=== PATIENT | female | born 1995 | race Caucasian/White ===

== ENCOUNTER 2019-04-22 20:47 | Emergency (ER) | payer BC ==
[~2019-04-22] VITALS: Ht 160 cm; Wt 54.4 kg
[2019-04-22] MEDS ORDERED: CITA20TA9 PO (21:08)
[2019-04-22] MEDS ORDERED: PROP10TA PO (21:08)
[2019-04-22] MEDS ORDERED: DEXT20TA2 PO (21:08)
[2019-04-22 21:32] LABS: BASO # 0.1 x10^3/uL (0.0-0.2); BASO % 1 % (0-3); EOS % 0 % (0-3); HEMATOCRIT 36.9 % (36.0-47.0); HEMOGLOBIN 12.4 g/dL (12.0-15.5); LYMPH # 2.4 x10^3/uL (1.0-4.8); LYMPH % 26 % (24-48); MEAN CORPUSCULAR HEMOGLOBIN 28 pg (25-35); MEAN CORPUSCULAR HGB CONC 34 g/dL (31-37); MEAN CORPUSCULAR VOLUME 84 fL (79-100); MONO # 0.4 x10^3/uL (0.0-1.1); MONO % 4 % (0-9); NEUT # 6.6 x10^3uL (1.8-7.7); NEUT % 70 % (31-73); PLATELET COUNT 321 x10^3/uL (140-400); RED BLOOD COUNT 4.42 x10^6/uL (3.50-5.40); RED CELL DISTRIBUTION WIDTH 17.5 % (11.5-14.5); WHITE BLOOD COUNT 9.4 x10^3/uL (4.0-11.0)
[2019-04-22 21:42] LABS: BILIRUBIN,URINE NEGATIVE (NEG); CLARITY,URINE CLOUDY; COLOR,URINE YELLOW; NITRITE,URINE NEGATIVE (NEG); PH,URINE 6.5; PROTEIN,URINE NEGATIVE (NEG-TRACE)
--- NOTE | 2019-04-22 21:43 | PHYS DOC ---
Past Medical History Past Medical History: Alcoholism, Anxiety, GERD, Other Additional Past Medical Histor: ADHD, CDIFF Past Surgical History: Other Additional Past Surgical Histo: wisdom teeth extraction, knee surgery, upper GI, fecal transplant Alcohol Use: Heavy Additional Information: drinks 1 bottle wine, and 2 large glasses of liquor daily Adult General Chief Complaint Chief Complaint: WITHDRAWL HPI HPI 23-year-old female presents to ER for concern she is detoxing from alcohol. Patient states she has had a bottle of wine and 2 large glasses of some type of hard liquor with her last drink around 1400 today. Pt reports she has felt anxious throughout the day and during initial exam is hyperventilating. She reports she has had some chest heaviness and felt short of air with her rapid breathing. Patient denies any recent illness, travel, or self-harm. Patient r eports she hasn't had much water or food intake today. 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 Her mother is at bedside during discussion w/pt's approval. Patient reports she had similar episode last fall and was in an inpatient tx in September for alcohol binge drinking when her stress related to school became overwhelming. LMP 3 weeks ago. Patient denies daily smoking. She reports she has occasionally used marijuana denies any recent illicit drugs. Pt denies any suicidal ideations. Reports she does have history of anxiety. Review of Systems Review of Systems Constitutional: Denies fever or chills [] Eyes: Denies change in visual acuity, redness, or eye pain [] HENT: Denies nasal congestion or sore throat [] Respiratory: Denies cough. Reports SOA w/rapid breathing Cardiovascular: Reports chest heaviness GI: Denies abdominal pain, bloody stools or diarrhea. Reports N/V w/1 episode vomiting today : Denies dysuria or hematuria [] Musculoskeletal: Denies back pain or joint pain [] Integument: Denies rash or skin lesions [] Neurologic: Denies headache, focal weakness or sensory changes [] Endocrine: Denies polyuria or polydipsia [] Psych: Reports anxiety/stress- denies SI All other systems were reviewed and found to be within normal limits, except as documented in this note. Current Medications Current Medications Current Medications Medications (Trade) Dose Ordered Sig/[place] Start Time Stop Time Status Last Admin Dose Admin Lorazepam (Ativan Inj) 0.5 mg 1X ONCE 04/22/19 22:00 04/22/19 22:01 DC 04/22/19 22:45 0.5 MG Magnesium Oxide (Magnesium Oxide) 400 mg STK-MED ONCE 04/22/19 22:55 04/22/19 22:56 DC Nitrofurantoin Macrocrystals (Macrobid) 100 mg 1X ONCE 04/23/19 00:30 04/23/19 00:31 DC 04/23/19 00:10 100 MG Sodium Chloride 1,000 ml @ 1,000 mls/hr 1X ONCE 04/22/19 22:30 04/22/19 23:29 DC 04/22/19 22:46 1,000 MLS/HR Allergies Allergies Allergies Coded Allergies Type Severity Reaction Last Updated Verified Sulfa (Sulfonamide Antibiotics) Allergy Intermediate rash 04/22/19 Yes amoxicillin Allergy Intermediate rash 04/22/19 Yes sulfamethoxazole Allergy Intermediate rash 04/22/19 Yes trimethoprim Allergy Intermediate rash 04/22/19 Yes clindamycin Adverse Reaction Severe cdiff 04/22/19 Yes Physical Exam Physical Exam Constitutional: Well developed, well nourished, mild distress- anxious/hyperventilating, non-toxic appearance. [] HENT: Normocephalic, atraumatic, bilateral external ears normal, oropharynx moist, no oral exudates, nose normal. [] Eyes: PERRLA, EOMI, conjunctiva normal, no discharge. [] Neck: Normal range of motion, no tenderness, supple, no stridor. [] Cardiovascular:Heart rate regular rhythm, no murmur [] Lungs & Thorax: Bilateral breath sounds clear to auscultation- resp. equal/nonlabored after emotional Abdomen: Bowel sounds normal, soft, no tenderness, no masses, no pulsatile masses. [] Skin: Warm, dry, no erythema, no rash. [] Back: No tenderness, no CVA tenderness. [] Extremities: No tenderness, no cyanosis, no clubbing, ROM intact, no edema. [] Neurologic: Alert and oriented X 3, normal motor function, normal sensory function, no focal deficits noted. [] Psychologic: Affect normal, judgement normal, mood normal. [] Current Patient Data Vital Signs Vital Signs Date Time Temp Pulse Resp B/P (MAP) Pulse Ox O2 Delivery O2 Flow Rate FiO2 04/22/19 23:30 70 16 121/76 (91) 100 Room Air 04/22/19 20:59 97.7 97.7 Lab Values Laboratory Tests Test 04/22/19 21:10 04/22/19 21:25 White Blood Count 9.4 x10^3/uL (4.0-11.0) Red Blood Count 4.42 x10^6/uL (3.50-5.40) Hemoglobin 12.4 g/dL (12.0-15.5) Hematocrit 36.9 % (36.0-47.0) Mean Corpuscular Volume 84 fL (79-100) Mean Corpuscular Hemoglobin 28 pg (25-35) Mean Corpuscular Hemoglobin Concent 34 g/dL (31-37) Red Cell Distribution Width 17.5 % (11.5-14.5) H Platelet Count 321 x10^3/uL (140-400) Neutrophils (%) (Auto) 70 % (31-73) Lymphocytes (%) (Auto) 26 % (24-48) Monocytes (%) (Auto) 4 % (0-9) Eosinophils (%) (Auto) 0 % (0-3) Basophils (%) (Auto) 1 % (0-3) Neutrophils # (Auto) 6.6 x10^3uL (1.8-7.7) Lymphocytes # (Auto) 2.4 x10^3/uL (1.0-4.8) Monocytes # (Auto) 0.4 x10^3/uL (0.0-1.1) Eosinophils # (Auto) 0.0 x10^3/uL (0.0-0.7) Basophils # (Auto) 0.1 x10^3/uL (0.0-0.2) Maternal Serum HCG Beta Subunit < 1 mIU/mL (0-5) Sodium Level 135 mmol/L (136-145) L Potassium Level 3.9 mmol/L (3.5-5.1) Chloride Level 95 mmol/L (98-107) L Carbon Dioxide Level 24 mmol/L (21-32) Anion Gap 16 (6-14) H Blood Urea Nitrogen 9 mg/dL (7-20) Creatinine 0.7 mg/dL (0.6-1.0) Estimated GFR (Cockcroft-Gault) 103.7 BUN/Creatinine Ratio 13 (6-20) Glucose Level 102 mg/dL (70-99) H Calcium Level 9.4 mg/dL (8.5-10.1) Magnesium Level 1.6 mg/dL (1.8-2.4) L Total Bilirubin 0.7 mg/dL (0.2-1.0) Aspartate Amino Transferase (AST) 25 U/L (15-37) Alanine Aminotransferase (ALT) 26 U/L (14-59) Alkaline Phosphatase 71 U/L (46-116) Troponin I Quantitative < 0.017 ng/mL (0.000-0.055) Total Protein 7.2 g/dL (6.4-8.2) Albumin 4.0 g/dL (3.4-5.0) Albumin/Globulin Ratio 1.3 (1.0-1.7) Ethyl Alcohol Level 91 mg/dL (0-10) H Urine Collection Type Unknown Urine Color Yellow Urine Clarity Cloudy Urine pH 6.5 Urine Specific [place] 1.020 Urine Protein Negative mg/dL (NEG-TRACE) Urine Glucose (UA) Negative mg/dL (NEG) Urine Ketones (Stick) >=80 mg/dL (NEG) Urine Blood Negative (NEG) Urine Nitrite Negative (NEG) Urine Bilirubin Negative (NEG) Urine Urobilinogen Dipstick 1.0 mg/dL (0.2 mg/dL) Urine Leukocyte Esterase Moderate (NEG) Urine RBC Occ /HPF (0-2) Urine WBC 11-20 /HPF (0-4) Urine Squamous Epithelial Cells Many /LPF Urine Bacteria Many /HPF (0-FEW) Urine Mucus Mod /LPF Urine Opiates Screen Neg (NEG) Urine Methadone Screen Neg (NEG) Urine Barbiturates Neg (NEG) Urine Phencyclidine Screen Neg (NEG) Urine Amphetamine/Methamphetamine Pos (NEG) Urine Benzodiazepines Screen Neg (NEG) Urine Cocaine Screen Neg (NEG) Urine Cannabinoids Screen Pos (NEG) Urine Ethyl Alcohol Pos (NEG) Laboratory Tests 04/22/19 21:10 Laboratory Tests 04/22/19 21:10 EKG EKG EKG obtained 04/22/19 at [address] Cerda Sinus rhythm Incomplete Rt BBB Rate 74 No STEMI Radiology/Procedures Radiology/Procedures [] Course & Med Decision Making Course & Med Decision Making Pertinent Labs and Imaging studies reviewed. (See chart for details) Alicia ch/SATISH came to ER for pt evaluation. Discussed had with pt and her mom- no beds available at [facility]. So discussion had regarding home d/c with Rx for [place] with education on medication. Pt's mother will hold Rx and with increased anxiety/tremors pt would be provided with Rx. Pt will call [facility] tomorrow for possible bed as there will are anticipated discharged. Pt was advi sed on outpt AA meetings. Pt has attended those in the past. Pt continues to deny SI and reports her anxiety much better after IV flds/dose of Ativan. Test results were discussed. UTI on UA- neg. UCG. >80 ketones on UA. She received IV flds and dose of Mg. Dragon Disclaimer Janell Disclaimer This electronic medical record was generated, in whole or in part, using a voice recognition dictation system. Departure Departure Impression: Primary Impression: Alcohol abuse Additional Impression: Urinary tract infection Disposition: HOME, SELF-CARE Condition: STABLE Referrals: UNKNOWN PCP NAME (PCP) Patient Instructions: Alcohol Intoxication, Urinary Tract Infection Additional Instructions: As discussed follow-up with [facility] facility for outpatient treatment for alcohol detox. Avoid drinking alcohol. Drink plenty of fluids and eat well-balanced meals daily. Follow-up with your primary care physician in 3-5 days for reevaluation and further care sooner with any concerns. You are being provided with a lithium prescription this prescription is to be taken as needed for tremors and increased anxiety with detox from alcohol. You can take 1-2 tablets every 4 hours as she needed. If symptoms do not improve in you have concerns return to the emergency department if unable to get into your doctor. Scripts Nitrofurantoin Monohyd/M-Cryst (MACROBID 100 MG CAPSULE) 100 Mg Capsule 1 CAP PO BID, #10 CAP 0 Refills Prov: LANI WYLIE APRN 04/23/19 Problem Qualifiers LANI WYLIE APRN Apr 22, 2019 21:43
[2019-04-22 21:44] LABS: CALCIUM 9.4 mg/dL (8.5-10.1); CREATININE 0.7 mg/dL (0.6-1.0); GFR 103.7; POTASSIUM 3.9 mmol/L (3.5-5.1)
[2019-04-22 21:50] LABS: BARBITURATES NEG (NEG); BENZODIAZEPINES NEG (NEG); CANNABINOIDS POS (NEG); COCAINE NEG (NEG); METHADONE NEG (NEG); OPIATES NEG (NEG); PHENCYCLIDINE NEG (NEG)
[2019-04-22 21:50] LABS: ALBUMIN/GLOBULIN RATIO 1.3 (1.0-1.7); MAGNESIUM 1.6 mg/dL (1.8-2.4); TOTAL BILIRUBIN 0.7 mg/dL (0.2-1.0); TOTAL PROTEIN 7.2 g/dL (6.4-8.2)
[2019-04-22 21:51] LABS: AMPHETAMINE/METHAMPHETAMINE POS (NEG)
[2019-04-22 21:57] LABS: BACTERIA,URINE MANY /HPF (0-FEW); RBC,URINE OCC /HPF (0-2); SQUAMOUS EPITHELIAL CELL,UR MANY /LPF
[2019-04-22] MEDS ORDERED: IV NORMAL SALINE 1000ML BAG 1,000 ML IV ONE ×2 (22:00→22:30)
[2019-04-22] MEDS ORDERED: MAGNESIUM OXIDE 400 MG TABLET ONE (22:55)
[2019-04-22 23:30] VITALS: BP 121/76
[2019-04-23] MEDS ORDERED: NITR100C62 PO (00:01)
[2019-04-23] MEDS ORDERED: NITROFURANTOIN MONOHYD/M-CRYST 100 MG CAPSULE. PO ONE (00:30)
[2019-04-23] MEDS ORDERED: MAGNESIUM OXIDE 400 MG TABLET PO SCH (09:00)
--- NOTE | 2019-04-25 08:20 | EKG ---
[facility] [address] [place] [address] Test Date: 2019-04-22 Test Time: 21:05:02 Pat Name: GINA MIRANDA Department: Room: Gender: F [employer]roll Lead: : 1995 Requested By: LANI WYLIE Order Number: [id number] Reading MD: Measurements Intervals [place] Rate: 74 P: 29 GA: 154 QRS: 48 QRSD: 80 T: 41 QT: 390 QTc: 438 Interpretive Statements SINUS RHYTHM INCOMPLETE RIGHT BUNDLE BRANCH BLOCK OTHERWISE NORMAL ECG No previous ECG available for comparison
== END 2019-04-23 00:15 | disposition home or self-care (01) ==
LOC: ER 20:47
DX: F10.20 Alcohol dependence, uncomplicated (principal); Y90.4 Blood alcohol level of 80-99 mg/100 ml; N39.0 Urinary tract infection, site not specified; R06.4 Hyperventilation; R11.2 Nausea with vomiting, unspecified; F41.9 Anxiety disorder, unspecified; K21.9 Gastro-esophageal reflux disease without esophagitis; Z88.2 Allergy status to sulfonamides; Z88.1 Allergy status to other antibiotic agents
CPT/HCPCS: 36415; 80053; 80307; 81001; 81025; 83735; 84484; 84702; 85025; 87086; 93005; 96361; 96374; 99285; G0480; J2060; J7030